=== PATIENT | male | born 1995 | race Caucasian/White ===

== ENCOUNTER 2016-11-01 10:36 | Emergency (ER) | payer OTHER ==
[2016-11-01 10:40] VITALS: RESP 16
--- NOTE | 2016-11-01 10:53 | EDPHY ---
HPI/HX/ROS/PE/MDM Narrative: CHIEF COMPLAINT: Scrotal pain HPI: The patient is a 21 y/o male arriving with his girlfriend complaining of scrotal pain after an injury during sex last night. He says, "I hurt myself during sex. I missed." He describes his penis bending and immediately had sharp pain in his left scrotum. He now has scrotal swelling, bruising, and pain. He denies penile pain, dysuria, or hematuria. No history of genital surgeries. He denies other injuries or complaints. REVIEW OF SYSTEMS: Aside from elements discussed in the HPI, a comprehensive 10-point review of systems was reviewed and is negative. PMH: Pneumonia SOCIAL HISTORY: Girlfriend at bedside PHYSICAL EXAM: General:Patient is alert, in no acute distress. ENT:Eyes are normal to inspection. ENT inspection normal. Neck: Normal inspection. Full range of motion. Respiratory:No respiratory distress. Breath sounds normal bilaterally. Cardiovascular: Regular rate and rhythm. Strong peripheral pulses. Normal cap refill. Abdomen:The abdomen is nontender to palpation. There are no peritoneal signs. There are normal bowel sounds. : Ecchymosis to left hemiscrotum. Penis nontender without ecchymosis. Tenderness to inguinal canal on left. Back: Normal to inspection. No tenderness to palpation. Skin: Normal color. No rash. Warm and dry. Extremities: Normal appearance. Full range of motion. Neuro: Oriented x3. Normal motor function. Normal sensory function. ED Course: UA negative. Study: Ultrasound of the scrotum Indication: Pain, trauma Results: US scan of the scrotum was obtained. The results of the study are scrotal hematoma, extratesticular. The study was read by the radiologist, Dr. Vergara. I viewed the images myself on the PACS system. I discussed imaging results with patient. He will be discharged with hematoma instructions and referral to urology for follow up. He is comfortable with this plan. MDM: This patient presents with mildly painful scrotal ecchymosis after blunt force injury during sex. Exam is reassuring. US shows extratesticular hematoma which is consistent with exam and history. I see no signs of active bleeding or hernia. No infectious symptoms. Patient will be referred to Urology - strict return precautions discussed with patient. - Data Points Laboratory Results: 11/01/16 11:45 Urine Color YELLOW Urine Appearance CLEAR Urine pH 6.0 (5.0-7.5) Ur Specific [place] 1.019 (1.002-1.030) Urine Protein NEGATIVE (NEGATIVE) Urine Ketones NEGATIVE (NEGATIVE) Urine Blood NEGATIVE (NEGATIVE) Urine Nitrate NEGATIVE (NEGATIVE) Urine Bilirubin NEGATIVE (NEGATIVE) Urine Urobilinogen NEGATIVE EU (0.2-1.0) Ur Leukocyte Esterase NEGATIVE (NEGATIVE) Ur Culture Indicated? NOT INDICATED (NI) Urine Glucose NEGATIVE (NEGATIVE) General Time Seen by Provider: 11/01/16 10:46 Initial Vital Signs: Initial Vital Signs Temperature (C) 36.9 C 11/01/16 10:37 Heart Rate 72 11/01/16 10:37 Respiratory Rate 16 11/01/16 10:37 Blood Pressure 141/91 H 11/01/16 10:37 O2 Sat (%) 95 11/01/16 10:37 O2 Delivery Mode Room Air Allergies/Adverse Reactions: iodine Allergy (Verified 11/01/16 10:41) Home Medications: Medication Instructions Recorded No Known Home Meds 11/01/16 Departure - Departure Disposition: Home, Routine, Self-Care Clinical Impression: Traumatic scrotal hematoma Qualifiers: Encounter type: initial encounter Qualifier Code: (S30.22XA) Contusion of scrotum and testes, initial encounter Condition: Good Instructions: Hematoma (ED) Additional Instructions: 1. Apply ice to sore areas. Use Tylenol or ibuprofen as directed on the packaging if needed for pain for the next 3-4 days. 2. Follow up with Dr. Amezcua, urologist, in one week. 3. Return to the ED for severe pain, dramatic increase in swelling, inability to urinate, or other worsening of condition. Referrals: Chele Amezcua MD [Medical Doctor] - As per Instructions Stand Alone Forms: Work Excuse Report Scribed for: Tanner Fernandez Report Scribed by: Mila Portillo Date of Report: 11/01/16 Time of Report: 10:53 Physician Review and Approval Statement: Portions of this note were transcribed by an ED scribe. I personally performed the history, physical exam, and medical decision making; and confirm the accuracy of the information in the transcribed note.
--- NOTE | 2016-11-01 11:55 | US ---
Testicular Sonogram Clinical Indications: Testicular pain. Technique: Scrotal contents were imaged with the high-resolution transducer. Color and pulsed Doppl er were recorded on each side. Findings: The right testicle measures 2.6 x 3.0 x 4.3 cm. There is normal blood flow. The epididymis is unremarkable. A 0.5 x 0.3 x 0.2 cm area of calcification is stable compared to the prior examinati on. There is trace physiologic fluid. The resistive index is 0.45. Left testicle is unremarkable. It is normal in size, morphology and echotexture and measures 2.6 x 2. 9 x 4.6 cm. Flow is normal. Resistive index is normal at 0.53. The epididymis is unremarkable. There is echogenic fluid within the left scrotum that is exterior to the testicle adjacent to an area of bruising. Impression: Scrotal hematoma. Critical results relayed by Dr. Aneudy Vergara to Dr. Tanner Fernandez on November 01, 2016 at 11:45 a.m.
[2016-11-01 11:56] LABS: COLOR YELLOW; LEUKOCYTE ESTERASE,URINE NEGATIVE (NEGATIVE); NITRITE,URINE NEGATIVE (NEGATIVE)
[2016-11-01 12:19] VITALS: BP 133/75; PULSE 73; TEMP 97.7; O2SAT 94
== END 2016-11-01 12:18 | disposition home or self-care (01) ==
DX: S30.22XA Contusion of scrotum and testes, initial encounter (principal); X58.XXXA Exposure to other specified factors, initial encounter